=== PATIENT | female | born 1955 | race Caucasian/White ===

== ENCOUNTER → 2022-06-19 06:41 | Outpatient (CLI) | payer MEDICARE, SELFPAY ==
--- NOTE | 2022-06-19 06:44 | DI.US.S_ITS ---
PROCEDURE: US EXTREMITY NONVASC UPPER LT INDICATIONS: PAIN IN RIGHT THUMB TECHNIQUE: Real-time scanning was performed of the right 1st digit , with image documentation. COMPARISON: RAYMON Mendez, SHIVA FINGER(S) RIGHT, 06/09/2022, 8:48. FINDINGS: Sonographic images of the right 1st digit demonstrate a hypoechoic focus with increased vascularity measuring 19 x 13 x 5 mm. This surrounds a linear focus of echogenicity measuring approximately 6 mm. Focus of linear increased echogenicity is approximately 4 mm below the skin surface. IMPRESSION: Linear echogenicity may represent foreign body with surrounding inflammatory reaction. It is noted that no radiopaque foreign body was identified on x-ray. Focus of increased echogenicity could represent a non radiopaque foreign body. Clinical correlation is recommended. Dictated by: Jacy Saunders M.D. on 06/19/2022 at 9:52 Approved by: Jacy Saunders M.D. on 06/19/2022 at 9:58
== END ==
PROVIDERS: Family Provider Family Medicine; PCP Family Medicine; Referring Provider Orthopaedic Surgery; Visit Provider Orthopaedic Surgery
DX: M79.644 Pain in right finger(s) (principal)
CPT/HCPCS: 76882

== ENCOUNTER → 2022-08-07 07:18 | Outpatient (CLI) | payer MEDICARE, SELFPAY ==
[2022-08-07 08:22] LABS: Monocytes Absolute Auto 400 /uL (0-900); Monocytes Percent Auto 7.8 % (3-14); Neutrophils Absolute Auto 2300 /uL (1500-7000)
[2022-08-07 08:27] LABS: Alanine Aminotransferase 46 IU/L (<35); Albumin 3.6 g/dL (3.5-5.0); Albumin Globulin Ratio 1.2 (1.0-2.8); Alkaline Phosphatase 107 U/L (38-126); Aspartate Aminotransferase 39 IU/L (14-36); BUN Creatinine Ratio 27.5 (6-22); Bilirubin Total 1.3 mg/dL (0.2-1.3); Blood Urea Nitrogen 19 mg/dL (7-17); Calcium 8.4 mg/dL (8.4-10.2); Carbon Dioxide 27 mmol/L (22-32); Chloride 107 mmol/L (98-107); Cholesterol 165 mg/dL (140-199); Estimated Glomerular Filt Rate > 60 mL/min (>60); Globulin 2.9 g/dL (1.7-4.1); Glucose 90 mg/dL (80-110); HDL Cholesterol 61 mg/dL (40-60); HEMOLYSIS < 15 (0-50); LDL Cholesterol Calculated 91 mg/dL (<100); Sodium 141 mmol/L (137-145); Total Protein 6.5 g/dL (6.3-8.2); Triglycerides 67 mg/dL (35-150)
[2022-08-07 08:31] LABS: Add Manual Diff / Slide Review NO; Basophils Absolute Auto 100 /uL (0-100); Basophils Percent Auto 1.2 % (0-2); Eosinophils Absolute Auto 300 /uL (0-450); Eosinophils Percent Auto 7.3 % (2-4); Hematocrit 41.1 % (36-46); Hemoglobin 14.2 g/dL (12.0-16.0); Lymphocytes Absolute Auto 1600 /uL (1100-4500); Lymphocytes Percent Auto 34.5 % (25-40); Mean Corpuscular HGB Conc 34.7 % (30-36); Mean Corpuscular Hemoglobin 31.6 PG (26-34); Mean Corpuscular Volume 91.2 fL (80-100); Neutrophils Percent Auto 49.2 % (50-75); Platelet Count 181 X10^3/uL (150-400); Red Blood Cell Count 4.51 X10^6/uL (4.0-5.2); White Blood Cell Count 4.7 X10^3/uL (4.5-11.0)
== END ==
PROVIDERS: Family Provider Family Medicine; PCP Family Medicine; Referring Provider Family Medicine; Visit Provider Family Medicine
DX: Z13.228 Encounter for screening for other metabolic disorders (principal); Z13.220 Encounter for screening for lipoid disorders
CPT/HCPCS: 36415; 80053; 80061; 85025

== ENCOUNTER 2022-08-14 15:15 | Outpatient (RCR) | payer MEDICARE, SELFPAY ==
--- NOTE | 2022-08-04 16:55 | PT.OPPOC ---
Physical, Occupational & Speech Therapy At [facility] Current Diagnoses Edema, unspecified (08/04/22) Visit Care Team Role Provider Type Nicolle Mesa DO Family Provider Physician Primary Care Provider Specialty: Medical Address: [address] [place] [address], [address], [place], [address] Email: [email or web address] Roque Martinez MD Attending Provider Physician Referring Provider Specialty: Family Practice Address: [address] [place] [address], [address] Email: [email or web address] Plan Of Care PT-OP-T Assessment and Plan Start: 07/31/22 16:02 Freq: Status: Active Protocol: Document 08/04/22 08:13 ISHA (Rec: 08/05/22 11:12 [facility] [id number]) Physical Therapy Assessment Rehab Potential Rehabilitation Potential Good Evaluation Complexity Number of Personal Factors/Comorbidities 1-2 Number of Body Systems Impaired 3 Clinical Presentation at Evaluation Evolving Impairments Impairments Pain Goals Two Impairment lymphedema life impact scale score 50% Security Compliance Specialist Goal (LTG) Decrase lymphedema life impact scale score to no greater than 30% LTG Duration 11/03/22 One Impairment Lipedema mannie UE's and LE's Impairment c/o mannie LE heaviness and achyness limiting activity, lack of understanding of lipedema management Short Term Goal (STG) Patient to be instructed in all aspects of lipedema management to include skin care, MLD, sequential exercises, compression. Circumferential measurements to be stable (no inc or dec over the course of 1 week) STG Duration 09/29/22 Security Compliance Specialist Goal (LTG) Patient to be independent and compliant in all aspects of lipedema management including wearing/obtaining appropriate compression garments LE's and UE's LTG Duration 11/03/22 Assessment Summary Assessment Patient presents with function -limiting lipedema, s/p bilateral surgeries in UE's and LE's. Did not complete planned surgeries and is uncertain whether open to doing further surgery at this time due to process of approval and recovery. Today's session consisted of evaluation and patient education, discussion of POC to include skin care, manual lymphatic drainage, sequential lymphedema exercises, and compression. Patient has never done PT for lymphedema management beyond 1 visit back in [place] that she did not find helpful. Patient would like to focus primarily on her LE's for treatment. Also discussed option of sequential pneumatic pump for LE's, and bilateral connected UE garment due to her report Physical Therapy Plan Frequency and Duration Frequency of Treatment 20 visits Duration of treatment (weeks) 12 Plan of Care Start Date 08/04/22 Plan of Care End Date 11/03/22 Therapeutic Interventions Therapeutic Interventions Aquatic Therapy,Home Exercise Program,Lymphedema Management, Manual Therapy,Patient/ Caregiver Education,Self-Care/ Home Management,Taping, Therapeutic Activities, Therapeutic Exercises Next Visit Focus/Plan Next Note Type Treatment Note Next Visit Plan Initiate MLD, consider bandaging, continue patient education and discussion of compression options and evaluate current compression garment(s), do skin care and sequential lymphedema ex while wearing comression as tolerated. Plan of Care Dates Plan of Care Start Date 08/04/22 Plan of Care End Date 11/03/22 Electronically Signed by: Julieta Miller, PT 08/07/22 [id number] If you are in agreement with this Plan of Care, please return a signed and dated copy. I have reviewed this Plan of Care and certify that the skilled therapy services above are required to meet the patient?s needs. Physician Signature Date Printed Name and Credentials Clinical Instructor Signature Printed Name and Credentials
--- NOTE | 2022-08-04 16:55 | PT.OIE ---
Current Diagnoses Edema, unspecified (08/04/22) Past Medical History (Last Updated 06/01/22 @ 16:55 by Alyssa Kim) Allergies C. difficile colitis (~2013) Chicken pox Chronic back pain Hearing loss (~2021) History of recurrent ear infection (~1964) Shoulder pain (~2008) Past Surgical History (Last Updated 06/01/22 @ 16:55 by Alyssa Kim) Anesthesia History of bladder surgery History of breast surgery History of nasal surgery Lipedema Visit Care Team Role Provider Type Nicolle Mesa DO Family Provider Physician Primary Care Provider Specialty: Medical Address: [address] [place] [address], [address], [place], [address] Email: [email or web address] Roque Martinez MD Attending Provider Physician Referring Provider Specialty: Family Practice Address: [address] [place] [address], [facility] Email: [email or web address] Physical Therapy Initial Evaluation PT-OP-A Visit Information Start: 07/31/22 16:02 Freq: Status: Active Protocol: Document 08/04/22 08:13 [facility] (Rec: 08/04/22 09:01 [facility] [id number]) Out-Patient Physical Therapy Visit Information Visit Information Visit Type Initial Evaluation Visit Start Time 08:13 Visit Stop Time 09:00 Total Visit Minutes 47 Visit Number 1 Evaluation Information Evaluation Date 08/04/22 PT-OP-B Current Condition Start: 07/31/22 16:02 Freq: Status: Active Protocol: Document 08/04/22 08:13 SAK (Rec: 08/04/22 09:01 [facility] [id number]) Current Condition History of Current Condition Onset Date 2016 Current Complaints LE lymphedema History of Current Condition diagnosed with lipedema 2016 or 2017 in [place]. Doctor recommended MLD, pt reports she had very unprofessional first appointment with a therapist and didn't go back, then 2018 came to had right and left leg surgery, followed by arms by Dr. Felton. Lost 30 lbs of weight and has kept off. Post op LE's had 1 day of very tight wraps, too tight on right thigh and has a divot. Calves better, thighs require some version of compression, weight of edema has dropped to knees and knees very uncomfortable. Trying to decide about further surgery, not sure has energy to go through process again including finding surgeon ( prior has retired), getting approval, post-op recovery. Was hoping previously to have surgery on buttocks, ran out of [facility]. Has never done MLD or been taught a regimine for lipedema management. 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 Current Functional Impairments (Reported) Functional Limitations- ADL's independent but with much effort Functional Limitations- Mobility/Gait limited due to heaviness of legs Functional Limitations- Work/School can't tolerate prolonged standing, online work done more easily PT-OP-C Subjective Start: 07/31/22 16:02 Freq: Status: Active Protocol: Document 08/04/22 08:13 [facility] (Rec: 08/05/22 11:12 [facility] [id number]) Patient Questionnaires Lymphedema Life Impact Score Lymphedema Score 50 OP-PT Pain Assessment Pain Assessment Grid Paper Pain Assessment Grid Completed Yes Location mannie LE's Pain Location Details mannie LE's Comments Pain Comments 3/10 wearing compression, 5/10 without compression mannie LE's PT-OP-G Mobility & Gait Start: 07/31/22 16:02 Freq: Status: Active Protocol: Document 08/04/22 08:13 [facility] (Rec: 08/05/22 11:12 [facility] [id number]) OP Gait Assessment Gait Gait Assistance Required: Independent Assistive Devices Assistive Device None Factors Limiting Gait Function Factors Limiting Gait Function Decreased Activity Tolerance, Pain PT-OP-J Posture/Palpation/Skin Start: 07/31/22 16:02 Freq: Status: Active Protocol: Document 08/04/22 08:13 [facility] (Rec: 08/05/22 11:12 [facility] [id number]) Skin Assessment Other Assessments Skin Assessment Comments No hemosiderin staining, no fibrosis PT-OP-K Range of Motion Start: 07/31/22 16:02 Freq: Status: Active Protocol: Document 12/05/22 08:13 [facility] (Rec: 08/05/22 11:12 [facility] [id number]) Hip Goniometric Range of Motion Hip mannie Hip ROM WFL Yes Knee Goniometric Range of Motion Knee mannie Knee ROM WFL Yes Ankle and Foot Goniometric Range of Motion Ankle and Foot mannie Ankle/Foot ROM WFL Yes PT-OP-N Lymphedema Start: 07/31/22 16:02 Freq: Status: Active Protocol: Document 08/04/22 08:13 [facility] (Rec: 08/05/22 11:12 [facility] [id number]) Lymphedema Measurements Lower Extremity Circumference Measurements Left Affected MT Heads 21.4 cm Mid-foot 22.5 cm Medial Malleolus 26 cm 10 cm From Medial Malleolus 26.8 cm 20 cm From Medial Malleolus 36.3 cm 30 cm From Medial Malleolus 44.4 cm 40 cm From Medial Malleolus 49.5 cm 50 cm From Medial Malleolus 52.5 cm 60 cm From Medial Malleolus 59.2 cm 70 cm From Medial Malleolus 71 cm 80 cm From Medial Malleolus 80.7 cm Knee Joint 50.2 cm Hip 85.7 cm Right Affected MT Heads 21.5 cm Mid-foot 22.2 cm Medial Malleolus 25.8 cm 10 cm From Medial Malleolus 25.4 cm 20 cm From Medial Malleolus 37.5 cm 30 cm From Medial Malleolus 45.5 cm 40 cm From Medial Malleolus 50 cm 50 cm From Medial Malleolus 53.4 cm 60 cm From Medial Malleolus 60 cm 70 cm From Medial Malleolus 62.5 cm 80 cm From Medial Malleolus 79.9 cm Knee Joint 51.5 cm Hip 87.8 cm Comments Lymphedema Comments Patient very sensitive to prior recommendations that she just needs to eat better, lose weight. Also sensitive to having her lipedema called lymphedema due to lack of understanding by the public and biomedical engineer PT-OP-Q Treatments Start: 07/31/22 16:02 Freq: Status: Active Protocol: Document 08/04/22 08:13 [facility] (Rec: 08/05/22 11:12 [facility] [id number]) Lymphedema Treatment Patient Education Lymphedema Precautions issued written handout Compression Garments discussed options, issued handout for local and online vendors Self Manual Lymphatic Drainage issued written handout and YouTube ed info Sequential Lymphedema Exercises issued written handout Other discussed option of sequential pneumatic pump PT-OP-T Assessment and Plan Start: 07/31/22 16:02 Freq: Status: Active Protocol: Document 08/04/22 08:13 ISHA (Rec: 08/05/22 11:12 [facility] [id number]) Physical Therapy Assessment Rehab Potential Rehabilitation Potential Good Evaluation Complexity Number of Personal Factors/Comorbidities 1-2 Number of Body Systems Impaired 3 Clinical Presentation at Evaluation Evolving Impairments Impairments Pain Goals Two Impairment lymphedema life impact scale score 50% Picking Machine Operator Goal (LTG) Decrase lymphedema life impact scale score to no greater than 30% LTG Duration 11/03/22 One Impairment Lipedema mannie UE's and LE's Impairment c/o mannie LE heaviness and achyness limiting activity, lack of understanding of lipedema management Short Term Goal (STG) Patient to be instructed in all aspects of lipedema management to include skin care, MLD, sequential exercises, compression. Circumferential measurements to be stable (no inc or dec over the course of 1 week) STG Duration 09/29/22 Picking Machine Operator Goal (LTG) Patient to be independent and compliant in all aspects of lipedema management including wearing/obtaining appropriate compression garments LE's and UE's LTG Duration 11/03/22 Assessment Summary Assessment Patient presents with function -limiting lipedema, s/p bilateral surgeries in UE's and LE's. Did not complete planned surgeries and is uncertain whether open to doing further surgery at this time due to process of approval and recovery. Today's session consisted of evaluation and patient education, discussion of POC to include skin care, manual lymphatic drainage, sequential lymphedema exercises, and compression. Patient has never done PT for lymphedema management beyond 1 visit back in [place] that she did not find helpful. Patient would like to focus primarily on her LE's for treatment. Also discussed option of sequential pneumatic pump for LE's, and bilateral connected UE garment due to her report Physical Therapy Plan Frequency and Duration Frequency of Treatment 20 visits Duration of treatment (weeks) 12 Plan of Care Start Date 08/04/22 Plan of Care End Date 11/03/22 Therapeutic Interventions Therapeutic Interventions Aquatic Therapy,Home Exercise Program,Lymphedema Management, Manual Therapy,Patient/ Caregiver Education,Self-Care/ Home Management,Taping, Therapeutic Activities, Therapeutic Exercises Next Visit Focus/Plan Next Note Type Treatment Note Next Visit Plan Initiate MLD, consider bandaging, continue patient education and discussion of compression options and evaluate current compression garment(s), do skin care and sequential lymphedema ex while wearing comression as tolerated.
--- NOTE | 2022-08-14 16:46 | PT.OTN ---
Current Diagnoses Edema, unspecified (08/14/22) Physical Therapy Treatment Note PT-OP-A Visit Information Start: 07/31/22 16:02 Freq: Status: Active Protocol: Document 08/14/22 15:21 AW (Rec: 08/14/22 16:46 AW [id number]) Out-Patient Physical Therapy Visit Information Visit Information Visit Type Treatment Note Visit Start Time 15:15 Visit Stop Time 16:30 Total Visit Minutes 75 Visit Number 2 Evaluation Information Evaluation Date 08/04/22 PT-OP-B Current Condition Start: 07/31/22 16:02 Freq: Status: Active Protocol: Document 08/04/22 08:13 [facility] (Rec: 08/04/22 09:01 [facility] [id number]) Current Condition History of Current Condition Onset Date 2015 Current Complaints LE lymphedema History of Current Condition diagnosed with lipedema 2016 or 2017 in [place]. Doctor recommended MLD, pt reports she had very unprofessional first appointment with a therapist and didn't go back, then 2018 came to had right and left leg surgery, followed by arms by Dr. Felton. Lost 30 lbs of weight and has kept off. Post op LE's had 1 day of very tight wraps, too tight on right thigh and has a divot. Calves better, thighs require some version of compression, weight of edema has dropped to knees and knees very uncomfortable. Trying to decide about further surgery, not sure has energy to go through process again including finding surgeon ( prior has retired), getting approval, post-op recovery. Was hoping previously to have surgery on buttocks, ran out of [facility]. Has never done MLD or been taught a regimine for lipedema management. 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 PT-OP-G Mobility & Gait Start: 07/31/22 16:02 Freq: Status: Active Protocol: Document 08/04/22 08:13 SAK (Rec: 08/05/22 11:12 [facility]AK [id number]) OP Gait Assessment Gait Gait Assistance Required: Independent Assistive Devices Assistive Device None Factors Limiting Gait Function Factors Limiting Gait Function Decreased Activity Tolerance, Pain PT-OP-J Posture/Palpation/Skin Start: 07/31/22 16:02 Freq: Status: Active Protocol: Document 08/04/22 08:13 [facility]AK (Rec: 08/05/22 11:12 [facility] [id number]) Skin Assessment Other Assessments Skin Assessment Comments No hemosiderin staining, no fibrosis PT-OP-K Range of Motion Start: 07/31/22 16:02 Freq: Status: Active Protocol: Document 08/04/22 08:13 [facility]AK (Rec: 08/05/22 11:12 [facility] [id number]) Hip Goniometric Range of Motion Hip mannie Hip ROM WFL Yes Knee Goniometric Range of Motion Knee mannie Knee ROM WFL Yes Ankle and Foot Goniometric Range of Motion Ankle and Foot mannie Ankle/Foot ROM WFL Yes PT-OP-N Lymphedema Start: 07/31/22 16:02 Freq: Status: Active Protocol: Document 08/04/22 08:13 SAK (Rec: 08/05/22 11:12 [facility]AK [id number]) Lymphedema Measurements Lower Extremity Circumference Measurements Left Affected MT Heads 21.4 cm Mid-foot 22.5 cm Medial Malleolus 26 cm 10 cm From Medial Malleolus 26.8 cm 20 cm From Medial Malleolus 36.3 cm 30 cm From Medial Malleolus 44.4 cm 40 cm From Medial Malleolus 49.5 cm 50 cm From Medial Malleolus 52.5 cm 60 cm From Medial Malleolus 59.2 cm 70 cm From Medial Malleolus 71 cm 80 cm From Medial Malleolus 80.7 cm Knee Joint 50.2 cm Hip 85.7 cm Right Affected MT Heads 21.5 cm Mid-foot 22.2 cm Medial Malleolus 25.8 cm 10 cm From Medial Malleolus 25.4 cm 20 cm From Medial Malleolus 37.5 cm 30 cm From Medial Malleolus 45.5 cm 40 cm From Medial Malleolus 50 cm 50 cm From Medial Malleolus 53.4 cm 60 cm From Medial Malleolus 60 cm 70 cm From Medial Malleolus 62.5 cm 80 cm From Medial Malleolus 79.9 cm Knee Joint 51.5 cm Hip 87.8 cm Comments Lymphedema Comments Patient very sensitive to prior recommendations that she just needs to eat better, lose weight. Also sensitive to having her lipedema called lymphedema due to lack of understanding by the public and medical assistant internal medicine PT-OP-Q Treatments Start: 07/31/22 16:02 Freq: Status: Active Protocol: Document 08/14/22 15:21 AW (Rec: 08/14/22 16:46 AW [id number]) Lymphedema Treatment Manual Lymphatic Drainage Location BLE Duration 45 minutes Comments Focused on AIA pathways and educated pt in self-MLD techniques. Lymphedema Wrapping Other Pt donned her own ankle to waist lycra garment. Educated pt on benefits of short stretch bandages or circular knit garments for higher working pressure and better reduction. Sequential Lymphedema Exercises Location BLE Duration 10 minutes Comments Performed in sitting while pt wearing own compression. Encouraged pt to continue daily at home. Other Other Provided another folder with all handouts and specifically pointed out reference to [facility] youtube channel. PT-OP-T Assessment and Plan Start: 07/31/22 16:02 Freq: Status: Active Protocol: Document 08/14/22 15:21 AW (Rec: 08/14/22 16:46 AW [id number]) Physical Therapy Assessment Impairments Impairments Pain Goals Two Impairment lymphedema life impact scale score 50% Prison Goal (LTG) Decrase lymphedema life impact scale score to no greater than 30% LTG Duration 11/03/22 One Impairment Lipedema mannie UE's and LE's Impairment c/o mannie LE heaviness and achyness limiting activity, lack of understanding of lipedema management Short Term Goal (STG) Patient to be instructed in all aspects of lipedema management to include skin care, MLD, sequential exercises, compression. Circumferential measurements to be stable (no inc or dec over the course of 1 week) STG Duration 09/29/22 Prison Goal (LTG) Patient to be independent and compliant in all aspects of lipedema management including wearing/obtaining appropriate compression garments LE's and UE's LTG Duration 11/03/22 Assessment Summary Assessment Pt has questions about anticipated outcomes. Educated pt that prognosis would likely depend most highly on consistency with appropriate compression. Focused today on MLD and education for self-MLD . Pt does have hip ROM sufficient to perform on her own. Did not measure today since this is first treatment session. Physical Therapy Plan Frequency and Duration Frequency of Treatment 20 visits Duration of treatment (weeks) 12 Plan of Care Start Date 08/04/22 Plan of Care End Date 11/03/22 Therapeutic Interventions Therapeutic Interventions Aquatic Therapy,Home Exercise Program,Lymphedema Management, Manual Therapy,Patient/ Caregiver Education,Self-Care/ Home Management,Taping, Therapeutic Activities, Therapeutic Exercises Next Visit Focus/Plan Next Note Type Treatment Note Next Visit Plan Follow up on self-MLD and sequential exercises. Consider bandaging, continue patient education and discussion of compression options and evaluate current compression garment(s), do skin care and sequential lymphedema ex while wearing comression as tolerated.
--- NOTE | 2023-03-30 15:39 | PT.OPDS ---
Current Diagnoses Edema, unspecified (08/14/22) Visit Care Team Role Provider Type Nicolle Mesa DO Family Provider Physician Primary Care Provider Specialty: Medical Address: [address] [place] [address], [address], [place], [address] Email: [email or web address] MD Attending Provider Physician Referring Provider Specialty: Family Practice Address: [address] [place] [address], [id number] Email: [email or web address] Visit Number Visit Number 2 Discharge Summary PT-OP-B Current Condition Start: 07/31/22 16:02 Freq: Status: Active Protocol: Document 08/04/22 08:13 ISHA (Rec: 08/04/22 09:01 SAK [id number]) Current Condition History of Current Condition Onset Date 2015 Current Complaints LE lymphedema History of Current Condition diagnosed with lipedema 2016 or 2017 in [place]. Doctor recommended MLD, pt reports she had very unprofessional first appointment with a therapist and didn't go back, then 2018 came to had right and left leg surgery, followed by arms by Dr. Felton. Lost 30 lbs of weight and has kept off. Post op LE's had 1 day of very tight wraps, too tight on right thigh and has a divot. Calves better, thighs require some version of compression, weight of edema has dropped to knees and knees very uncomfortable. Trying to decide about further surgery, not sure has energy to go through process again including finding surgeon ( prior has retired), getting approval, post-op recovery. Was hoping previously to have surgery on buttocks, ran out of [facility]. Has never done MLD or been taught a regimine for lipedema management. 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 PT-OP-G Mobility & Gait Start: 07/31/22 16:02 Freq: Status: Active Protocol: Document 08/04/22 08:13 SAK (Rec: 08/05/22 11:12 SAK [id number]) OP Gait Assessment Gait Gait Assistance Required: Independent Assistive Devices Assistive Device None Factors Limiting Gait Function Factors Limiting Gait Function Decreased Activity Tolerance, Pain PT-OP-J Posture/Palpation/Skin Start: 07/31/22 16:02 Freq: Status: Active Protocol: Document 08/04/22 08:13 SAK (Rec: 08/05/22 11:12 SAK [id number]) Skin Assessment Other Assessments Skin Assessment Comments No hemosiderin staining, no fibrosis PT-OP-K Range of Motion Start: 07/31/22 16:02 Freq: Status: Active Protocol: Document 08/04/22 08:13 SAK (Rec: 08/05/22 11:12 SAK [id number]) Hip Goniometric Range of Motion Hip mannie Hip ROM WFL Yes Knee Goniometric Range of Motion Knee mannie Knee ROM WFL Yes Ankle and Foot Goniometric Range of Motion Ankle and Foot mannie Ankle/Foot ROM WFL Yes PT-OP-N Lymphedema Start: 07/31/22 16:02 Freq: Status: Active Protocol: Document 08/04/22 08:13 SAK (Rec: 08/05/22 11:12 SAK [id number]) Lymphedema Measurements Lower Extremity Circumference Measurements Left Affected MT Heads 21.4 cm Mid-foot 22.5 cm Medial Malleolus 26 cm 10 cm From Medial Malleolus 26.8 cm 20 cm From Medial Malleolus 36.3 cm 30 cm From Medial Malleolus 44.4 cm 40 cm From Medial Malleolus 49.5 cm 50 cm From Medial Malleolus 52.5 cm 60 cm From Medial Malleolus 59.2 cm 70 cm From Medial Malleolus 71 cm 80 cm From Medial Malleolus 80.7 cm Knee Joint 50.2 cm Hip 85.7 cm Right Affected MT Heads 21.5 cm Mid-foot 22.2 cm Medial Malleolus 25.8 cm 10 cm From Medial Malleolus 25.4 cm 20 cm From Medial Malleolus 37.5 cm 30 cm From Medial Malleolus 45.5 cm 40 cm From Medial Malleolus 50 cm 50 cm From Medial Malleolus 53.4 cm 60 cm From Medial Malleolus 60 cm 70 cm From Medial Malleolus 62.5 cm 80 cm From Medial Malleolus 79.9 cm Knee Joint 51.5 cm Hip 87.8 cm Comments Lymphedema Comments Patient very sensitive to prior recommendations that she just needs to eat better, lose weight. 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 (Rec: 03/30/23 15:39 [facility] [id number]) Physical Therapy Plan Discharge Physical Therapy Discharge Reasons No Longer Attending PT
== END 2023-04-01 11:27 | disposition home or self-care (01) ==
LOC: PHYS 15:15
PROVIDERS: Family Provider Family Medicine; PCP Family Medicine; Referring Provider Family Medicine; Visit Provider Family Medicine
DX: R60.9 Edema, unspecified (principal)
CPT/HCPCS: 97110; 97140; 97162; 97535

== ENCOUNTER → 2023-01-16 15:51 | Outpatient (CLI) | payer OTHER, SELFPAY ==
--- NOTE | 2023-01-16 15:53 | DI.MG.S_ITS ---
BILATERAL DIGITAL SCREENING MAMMOGRAM 3D/2D WITH CAD: 01/16/2023 CLINICAL: Routine screening. No prior exams were available for comparison. There are scattered areas of fibroglandular density in both breasts (category b / 25%-50% glandular tissue). Current study was also evaluated with a Computer Aided Detection (CAD) system. No significant masses, calcifications, or other findings are seen in either breast. IMPRESSION: NEGATIVE There is no mammographic evidence of malignancy. A 1 year screening mammogram is recommended. Based on the Tyrer Cuzick model (a risk assessment model) the patient's lifetime risk is 3.7% and her 10 year risk is 2.2%. According to the ACR, ACS, and NCCN guidelines, an annual breast MRI exam along with mammogram is recommended if the patient's lifetime risk is 20% or greater. This exam was interpreted at Station ID: [id number]. NOTE: For mammograms, a report in lay terms will be sent to the patient. Approximately 15% of breast malignancies will not be visualized mammographically. In the management of a palpable breast mass, a negative mammogram must not discourage biopsy of a clinically suspicious lesion. Electronically Signed By: Deisi cardenas/shelley:02/02/2023 11:02:37 letter sent: Normal Exam ACR BI-RADS Category 1: Negative [id number]
== END ==
PROVIDERS: Family Provider Family Medicine; PCP Family Medicine; Referring Provider Family Medicine; Visit Provider Family Medicine
DX: Z12.31 Encounter for screening mammogram for malignant neoplasm of breast (principal)
CPT/HCPCS: 77063; 77067

== ENCOUNTER → 2023-02-20 | Outpatient (CLI) | payer OTHER, SELFPAY ==
--- NOTE | 2023-02-20 12:14 | DI.RAD.S_ITS ---
Bone Density Report Name: JOHN LAMB Age: 67 Sex: Female Ethnicity: White Date of : 1955 Indication: postmenopausal; screening for osteoporosis; Referring Provider: PUJA CRESPO Study: Bone densitometry was performed. Exam Date: February 20, 2023 Accession number: [id number] Bone Density: Region BMD T-score Z-score Classification AP Spine(L1-L4) 0.929 -1.1 1.0 Osteopenia Femoral Neck (Left) 0.664 -1.7 0.1 Osteopenia Total Hip (Left) 0.751 -1.6 -0.1 Osteopenia Femoral Neck (Right) 0.554 -2.7 -0.9 Osteoporosis Total Hip (Right) 0.627 -2.6 -1.1 Osteoporosis Total Hip Mean 0.689 -2.1 -0.6 Osteopenia World Health Organization criteria for BMD impression classify patients as: Normal (T-score at or above -1.0), Osteopenia (T-score between -1.0 and -2.5), or Osteoporosis (T-score at or below -2.5). 10-year Fracture Risk: FRAX not reported because: Some T-score for Spine Total or Hip Total or Femoral Neck at or below -2.5 Impression: The patient has osteoporosis, based on the Right Femoral Neck T-score. Discussion: INCREASED RISK OF FRACTURE. BONE DENSITY IS UNDESIRABLY LOW AT ONE OR MORE SKELETAL SITES, CONSISTENT WITH POSTMENOPAUSAL OSTEOPOROSIS. This patient's lowest T-score meets the World Health Organization's (WHO) criteria for osteoporosis at one or more sites (T-score -2.5 or below). In untreated patients, the risk of osteoporotic fracture increases approximately two-fold for each 1.0 SD decrease in T-score. Low bone density is not the only risk factor for fracture; also consider factors such as patient's age, frailty or poor health, risk of falling, risk of injury, previous osteoporotic fracture, family history of osteoporosis, cigarette smoking, low body weight, etc. Not everyone with low bone mineral density has osteoporosis; osteomalacia and other metabolic bone disorders should also be considered. Patients who have osteoporosis should be evaluated for specific diseases and conditions (secondary causes) that may cause or contribute to bone loss. The [place] [employer]ocrinologists (AACE) and National Osteoporosis Foundation (NOF) recommend pharmacologic intervention for all postmenopausal women whose T-score is in this range. The patient should follow a healthful lifestyle (good nutrition with adequate calcium and vitamin D, and appropriate weight-bearing exercise). Follow-Up: Consider a repeat BMD and Vertebral Fracture Assessment (VFA) exam in 2 years or sooner if medically necessary, to reassess this patient's status. Reported by: BERT ZAZUETA MD on 02/20/2023 12:58:00 PM.
== END ==
LOC: RAD 12:13
PROVIDERS: Family Provider Family Medicine; PCP Family Medicine; Referring Provider Family Medicine; Visit Provider Family Medicine
DX: Z13.820 Encounter for screening for osteoporosis; Z78.0 Asymptomatic menopausal state; M81.0 Age-related osteoporosis without current pathological fracture
CPT/HCPCS: 77080

== ENCOUNTER → 2023-03-01 10:36 | Outpatient (CLI) | payer OTHER, SELFPAY ==
--- NOTE | 2023-03-01 10:38 | DI.RAD.S_ITS ---
PROCEDURE: XR TOE LT MIN 2V INDICATIONS: 4th L toe injury TECHNIQUE: 3 views of the left 4th toe(s) acquired. COMPARISON: None. FINDINGS: Bones: No fractures or dislocations. No suspicious bony lesions. Soft tissues: No suspicious soft tissue densities. IMPRESSION: No acute traumatic abnormality of the left 4th toe. Dictated by: Ward Ordoñez M.D. on 03/01/2023 at 10:34 Approved by: Ward Ordoñez M.D. on 03/01/2023 at 10:37
== END ==
PROVIDERS: Family Provider Family Medicine; PCP Family Medicine; Referring Provider Nurse Practitioner Family; Visit Provider Nurse Practitioner Family
DX: S99.922A Unspecified injury of left foot, initial encounter (principal); X58.XXXA Exposure to other specified factors, initial encounter
CPT/HCPCS: 73660

== ENCOUNTER → 2024-01-22 14:54 | Outpatient (CLI) | payer OTHER, SELFPAY ==
--- NOTE | 2024-01-22 14:55 | DI.MG.S_ITS ---
BILATERAL DIGITAL SCREENING MAMMOGRAM 3D/2D WITH CAD: 01/22/2024 CLINICAL: Routine screening. Comparison is made to exams dated: 01/16/2023 mammogram - [facility], 12/27/2020 mammogram, and 11/18/2018 mammogram - outside facility. There are scattered areas of fibroglandular density in both breasts (category b / 25%-50% glandular tissue). Current study was also evaluated with a Computer Aided Detection (CAD) system. No significant masses, calcifications, or other findings are seen in either breast. There has been no significant interval change. IMPRESSION: NEGATIVE There is no mammographic evidence of malignancy. A 1 year screening mammogram is recommended. Based on the Tyrer Cuzick model (a risk assessment model) the patient's lifetime risk is 3.5% and her 10 year risk is 2.2%. According to the ACR, ACS, and NCCN guidelines, an annual breast MRI exam along with mammogram is recommended if the patient's lifetime risk is 20% or greater. This exam was interpreted at Station ID: [id number]. NOTE: For mammograms, a report in lay terms will be sent to the patient. Approximately 15% of breast malignancies will not be visualized mammographically. In the management of a palpable breast mass, a negative mammogram must not discourage biopsy of a clinically suspicious lesion. Electronically Signed By: Jose carnes/shelley:01/22/2024 17:18:19 letter sent: Normal Exam ACR BI-RADS Category 1: Negative [id number]
== END ==
PROVIDERS: Family Provider Family Medicine; PCP Family Medicine; Referring Provider Family Medicine; Visit Provider Family Medicine
DX: Z12.31 Encounter for screening mammogram for malignant neoplasm of breast (principal); R92.323 Mammographic fibroglandular density, bilateral breasts
CPT/HCPCS: 77063; 77067

== ENCOUNTER → 2024-07-20 07:07 | Outpatient (CLI) | payer OTHER, SELFPAY ==
[2024-07-20 09:19] LABS: Alanine Aminotransferase 50 IU/L (<35); Albumin 3.8 g/dL (3.5-5.0); Albumin Globulin Ratio 1.4 (1.0-2.8); Alkaline Phosphatase 107 U/L (38-126); Aspartate Aminotransferase 43 IU/L (14-36); BUN Creatinine Ratio 29.5 (6-22); Bilirubin Total 1.5 mg/dL (0.2-1.3); Blood Urea Nitrogen 23 mg/dL (7-17); Calcium 8.9 mg/dL (8.4-10.2); Carbon Dioxide 27 mmol/L (22-32); Chloride 106 mmol/L (98-107); Cholesterol 180 mg/dL (140-199); Estimated Glomerular Filt Rate > 60 mL/min (>60); Globulin 2.7 g/dL (1.7-4.1); Glucose 90 mg/dL (80-110); HDL Cholesterol 64 mg/dL (40-60); HEMOLYSIS < 15 (0-50); LDL Cholesterol Calculated 102 mg/dL (<100); Sodium 139 mmol/L (137-145); Total Protein 6.5 g/dL (6.3-8.2); Triglycerides 70 mg/dL (35-150)
[2024-07-20 09:24] LABS: High Sensitivity CRP - Cardiac 2.7 mg/L (1.0-3.0)
== END ==
PROVIDERS: Family Provider Family Medicine; PCP Family Medicine; Referring Provider Family Medicine; Visit Provider Family Medicine
DX: Z13.220 Encounter for screening for lipoid disorders (principal); R74.01 Elevation of levels of liver transaminase levels; E66.811 Obesity, class 1; Z68.30 Body mass index [BMI] 30.0-30.9, adult; R60.9 Edema, unspecified
CPT/HCPCS: 36415; 80053; 80061; 86140

== ENCOUNTER → 2024-10-03 09:10 | Outpatient (CLI) | payer MEDICARE, SELFPAY ==
[2024-10-03 09:55] LABS: Alanine Aminotransferase 36 IU/L (<35); Albumin 4.2 g/dL (3.5-5.0); Albumin Globulin Ratio 1.4 (1.0-2.8); Alkaline Phosphatase 92 U/L (38-126); Aspartate Aminotransferase 41 IU/L (14-36); BUN Creatinine Ratio 26.4 (6-22); Bilirubin Total 1.5 mg/dL (0.2-1.3); Blood Urea Nitrogen 23 mg/dL (7-17); Calcium 9.2 mg/dL (8.4-10.2); Carbon Dioxide 25 mmol/L (22-32); Chloride 108 mmol/L (98-107); Estimated Glomerular Filt Rate > 60 mL/min (>60); Glucose 96 mg/dL (80-110); HEMOLYSIS < 15 (0-50); Potassium 4.2 mmol/L (3.4-5.1); Sodium 139 mmol/L (137-145); Total Protein 7.2 g/dL (6.3-8.2)
== END ==
PROVIDERS: Family Provider Family Medicine; PCP Family Medicine; Referring Provider Family Medicine; Visit Provider Family Medicine
DX: R74.01 Elevation of levels of liver transaminase levels (principal)
CPT/HCPCS: 36415; 80053

== ENCOUNTER → 2025-01-26 16:17 | Outpatient (CLI) | payer MEDICARE, SELFPAY ==
--- NOTE | 2025-01-26 16:18 | DI.MG.S_ITS ---
MM screening mammo BI: 01/26/2025. BI-RADS: 1 CLINICAL: 69-year old female for bilateral screening mammogram. Tyrer-Cuzick lifetime risk of 2.8%. No personal or first-degree family history of breast cancer. The patient had a prior right breast biopsy. The patient is status-post reduction mammoplasty. PRIOR EXAMS 01/22/2024, 01/16/2023. MAMMOGRAPHY TECHNIQUE: 2D and 3D (tomosynthesis) digital mammographic views obtained, with additional images as needed for full coverage. Current study was also evaluated with a Computer Aided Detection (CAD) system. DENSITY B. There are scattered areas of fibroglandular density. MAMMOGRAPHY FINDINGS Bilateral: No suspicious mass, asymmetry, microcalcification, or other abnormality seen. IMPRESSION: * No evidence of malignancy. RECOMMENDATIONS Bilateral * Annual screening mammography. OVERALL ASSESSMENT CATEGORY BI-RADS-1: Negative. The [employer] recommends annual screening mammography beginning at age 40 for women with average risk of breast cancer. ELECTRONICALLY SIGNED: Geremias Meyer M.D. on 01/27/2025 at 01:27:29 PM PT Interpreting Station ID: [id number]
== END ==
PROVIDERS: Family Provider Family Medicine; PCP Family Medicine; Referring Provider Family Medicine; Visit Provider Family Medicine
DX: Z12.31 Encounter for screening mammogram for malignant neoplasm of breast (principal)
CPT/HCPCS: 77063; 77067

== ENCOUNTER → 2025-07-13 07:04 | Outpatient (CLI) | payer MEDICARE, SELFPAY ==
[2025-07-13 08:38] LABS: Alanine Aminotransferase 25 IU/L (<35); Albumin 3.6 g/dL (3.5-5.0); Albumin Globulin Ratio 1.4 (1.0-2.8); Alkaline Phosphatase 76 U/L (38-126); Blood Urea Nitrogen 26 mg/dL (7-17); Calcium 8.7 mg/dL (8.4-10.2); Carbon Dioxide 23 mmol/L (22-32); Chloride 109 mmol/L (98-107); Cholesterol 166 mg/dL (140-199); Estimated Glomerular Filt Rate > 60 mL/min (>60); Globulin 2.6 g/dL (1.7-4.1); Glucose 89 mg/dL (70-99); HDL Cholesterol 52 mg/dL (40-60); HEMOLYSIS < 15 (0-50); Potassium 4.2 mmol/L (3.4-5.1); Sodium 139 mmol/L (137-145); Total Protein 6.2 g/dL (6.3-8.2); Triglycerides 72 mg/dL (35-150)
[2025-07-13 09:03] LABS: TSH w/ Reflex to FT4 1.86 uIU/mL (0.47-4.68)
[2025-07-14 05:10] LABS: CRP, High Sensitivity 0.88 mg/L (0.00-3.00)
== END ==
PROVIDERS: Family Provider Family Medicine; PCP Family Medicine; Referring Provider Family Medicine; Visit Provider Family Medicine
DX: Z01.83 Encounter for blood typing (principal); E66.9 Obesity, unspecified
CPT/HCPCS: 36415; 80053; 80061; 84443; 86140; 86850; 86900; 86901

== ENCOUNTER → 2025-07-16 15:34 | Outpatient (CLI) | payer MEDICARE, SELFPAY | PROVIDERS: Family Provider Family Medicine; PCP Family Medicine; Visit Provider Chiropractor | DX: R39.15 Urgency of urination (principal) | CPT/HCPCS: 87086 ==